=== PATIENT | male | born 1965 | race African-American/Black ===

== ENCOUNTER 2017-07-07 09:36 | Day surgery (SDC) | payer BC ==
[2017-07-03 12:17] VITALS: BMI 46.8
[2017-07-07 10:18] VITALS: TEMP 98.4
[2017-07-07 12:34] VITALS: BP 111/56; PULSE 74
--- NOTE | 2017-07-08 12:00 | PATH ---
Surgical Pathology Report Patient Name: VAL RODRIGUEZ [facility]. Rec. #: [id number] /Age/Gender: 1965 (Age: 51) / M Account: [id number] Location: [facility]-ENDOSCOPY Taken: 07/07/2017 Received: 07/07/2017 Reported: 07/08/2017 Physicians: Amauri Dominguez M.D. Specimen(s) Received A: BX RIGHT COLON B: BX RECTO SIGMOID COLON Clinical History Rule out colon cancer Polyps Final Diagnosis A. COLON, RIGHT, POLYPECTOMY: SESSILE SERRATED POLYP. SUBMUCOSAL ADIPOSE TISSUE CONSISTENT WITH LIPOMA PRESENT. B. COLON, RECTOSIGMOID, BIOPSY: HYPERPLASTIC POLYP. Comment: Sessile serrated polyps are not dysplastic (adenomatous). They share morphologic features with hyperplastic polyps and, in the past, have been referred to as such. However, recent studies indicate that they harbor BRAF mutations and may represent neoplastic precursors to a subset of sporadic, microsatellite unstable colon cancers. They are generally treated and followed similar to colonic adenomas. KATTY Real and Shoaib, PAULINA Gastroenterology 2010, 139(5):[phone]. Electronically Signed Osei Hall M.D. Gross Description A. Received in formalin labeled "right colon," is a 1.0 x 0.5 x 0.3 cm brown, polypoid portion of soft tissue. The specimen is submitted in toto in one cassette. B. Received in formalin, labeled "rectosigmoid" are 2 brown, irregular portions of soft tissue averaging 0.3 cm. in greatest dimension. The specimens are submitted in toto in one cassette. /07/07/2017 saudi07/07/2017
== END 2017-07-07 12:35 | disposition home or self-care (01) ==
LOC: FASU-ENDO 09:36
PROVIDERS: ATTEND Internal Medicine Gastroenterology
PROC: 0DBK8ZX Excision of Ascending Colon, Via Natural or Artificial Opening Endoscopic, Diagnostic (ICD-10-PCS; principal; 2017-07-07 11:27)
PROC: 0DBN8ZX Excision of Sigmoid Colon, Via Natural or Artificial Opening Endoscopic, Diagnostic (ICD-10-PCS; 2017-07-07 11:27)
DX: Z12.11 Encounter for screening for malignant neoplasm of colon (principal); D12.2 Benign neoplasm of ascending colon; K63.5 Polyp of colon
CPT/HCPCS: 88305-TC

== ENCOUNTER 2017-07-15 16:32 | Observation (INO) | payer BC ==
--- NOTE | 2017-07-15 17:14 | PDOC ---
History of Present Illness - General Chief Complaint: Rectal Bleed Stated Complaint: RECTAL BLEED Time Seen by Provider: 07/15/17 16:33 - History of Present Illness Initial Comments: 07/15/17 17:11 51 M with no PMH presents to ER with rectal bleeding. Pt had colonoscopy done and had several polyps removed. He reports that he did not have any noticeable bleeding until yesterday. He first noticed blood-streaked stool yesterday. Today, he started passing solomon blood and saw only red in the toilet bowl. He reports 8 episodes of bloody bowel movements today. Denies N/V. Denies dark tarry stools prior to onset of bleeding. Denies abdominal pain. Pt has never had GIB in the past. Is not on any blood thinners. Does not take aspirin or NSAIDs. Pt endorses lightheadedness but no CP/SOB/palpitations. Past History - Past Medical History Allergies/Adverse Reactions: Allergies Allergy/AdvReac Type Severity Reaction Status Date / Time No Known Allergies Allergy Verified 07/15/17 16:33 Home Medications: Ambulatory Orders Multivitamin [One Daily] 1 each PO DAILY 07/03/17 Anemia: No Asthma: No Cancer: No Cardiac Disorders: No CVA: No COPD: No CHF: No DVT: No Dementia: No Diabetes: No GI Disorders: No Disorders: No HTN: No Hypercholesterolemia: No Liver Disease: No Seizures: No Thyroid Disease: No - Suicide/Smoking/Psychosocial Hx Smoking History: Never smoked Hx Alcohol Use: No Drug/Substance Use Hx: No Substance Use Type: None Review of Systems - Review of Systems Comments:: 07/15/17 17:23 "GENERAL/CONSTITUTIONAL: +lightheadedness, No fever or chills. HEAD, EYES, EARS, NOSE AND THROAT: No change in vision. No ear pain or discharge. No sore throat. CARDIOVASCULAR: No chest pain or shortness of breath. RESPIRATORY: No cough, wheezing, or hemoptysis. GASTROINTESTINAL: + rectal bleeding, No nausea, vomiting, diarrhea or constipation. GENITOURINARY: No dysuria, frequency, or change in urination. MUSCULOSKELETAL: No joint or muscle swelling or pain. No neck or back pain. SKIN: No rash NEUROLOGIC: No headache, vertigo, loss of consciousness, or change in strength/ sensation. ENDOCRINE: No increased thirst. No abnormal weight change. HEMATOLOGIC/LYMPHATIC: No anemia, easy bleeding, or history of blood clots. ALLERGIC/IMMUNOLOGIC: No hives or skin allergy. " *Physical Exam - Vital Signs Last Vital Signs Temp Pulse Resp BP Pulse Ox 98.1 F 100 H 16 122/82 96 07/15/17 16:33 07/15/17 16:33 07/15/17 16:33 07/15/17 16:33 07/15/17 16:33 - Physical Exam Comments: 07/15/17 17:24 "GENERAL: Awake, alert, and fully oriented, in no acute distress HEAD: No signs of trauma EYES: PERRLA, EOMI, sclera anicteric, conjunctiva clear ENT: Auricles normal inspection, hearing grossly normal, nares patent, oropharynx clear without exudates. Moist mucosa NECK: Nontender, no stepoffs, Normal ROM, supple, no lymphadenopathy, JVD, or masses LUNGS: Breath sounds equal, clear to auscultation bilaterally. No wheezes, and no crackles HEART: Regular rate and rhythm, normal S1 and S2, no murmurs, rubs or gallops ABDOMEN: Soft, nontender, normoactive bowel sounds. No guarding, no rebound. No masses RECTAL: + red stool, guaiac positive, no melena EXTREMITIES: Normal range of motion, no edema. No clubbing or cyanosis. No cords, erythema, or tenderness NEUROLOGICAL: Cranial nerves II through XII intact. 5/5 strength and sensation in all extremities, Normal speech, normal gait SKIN: Warm, Dry, normal turgor, no rashes or lesions noted. " ED Treatment Course - LABORATORY CBC & Chemistry Diagram: 07/15/17 16:55 07/15/17 16:55 Medical Decision Making - Medical Decision Making 07/15/17 17:24 51 M with lower GIB x 2 days, likely 2/2 recent colonoscopy and polypectomy. Pt mildly tachycardic and exhibiting symptoms of anemia, suggesting significant blood loss. - Labs, serial CBCs - Dr. Dominguez, GI consult 07/15/17 18:16 CBC,CMP WBC 12.4 K/mm3 (4.0-10.8) H 07/15/17 16:55 RBC 3.13 M/mm3 (4.00-5.60) L 07/15/17 16:55 Hgb 10.0 GM/dl (11.7-16.9) L 07/15/17 16:55 Hct 30.2 % (35.4-49) L 07/15/17 16:55 MCV 96.5 fl (80-96) H 07/15/17 16:55 MCH 32.0 pg (25.7-33.7) 07/15/17 16:55 MCHC 33.1 g/dl (32.0-35.9) 07/15/17 16:55 RDW 12.1 % (11.9-15.9) 07/15/17 16:55 Plt Count 288 K/MM3 (134-434) 07/15/17 16:55 MPV 8.1 fl (7.5-11.1) 07/15/17 16:55 Neutrophils % 78.4 % (42.8-82.8) 07/15/17 16:55 Lymphocytes % 18.3 % (8-40) 07/15/17 16:55 Monocytes % 3.1 % (3.8-10.2) L 07/15/17 16:55 Eosinophils % 0.1 % (0-4.5) 07/15/17 16:55 Basophils % 0.1 % (0-2.0) 07/15/17 16:55 Sodium 134 mmol/L (136-145) L 07/15/17 16:55 Potassium 4.4 mmol/L (3.5-5.1) 07/15/17 16:55 Chloride 104 mmol/L (98-107) 07/15/17 16:55 Carbon Dioxide 24 mmol/L (22-28) 07/15/17 16:55 Anion Gap 6 (8-16) L 07/15/17 16:55 BUN 16 mg/dl (7-18) 07/15/17 16:55 Creatinine 1.1 mg/dl (0.6-1.3) 07/15/17 16:55 Creat Clearance w eGFR > 60 (>60) 07/15/17 16:55 Random Glucose 152 mg/dl (74-106) H 07/15/17 16:55 Calcium 8.3 mg/dl (8.4-10.2) L 07/15/17 16:55 Total Bilirubin 0.7 mg/dl (0.2-1.0) 07/15/17 16:55 AST 20 U/L (10-42) 07/15/17 16:55 ALT 18 U/L (10-40) 07/15/17 16:55 Alkaline Phosphatase 56 U/L (32-92) 07/15/17 16:55 Creatine Kinase 329 IU/L (39-308) H 07/15/17 16:55 Troponin I < 0.03 ng/ml (0.03-0.50) L 07/15/17 16:55 Total Protein 6.2 g/dl (6.4-8.3) L 07/15/17 16:55 Albumin 3.2 g/dl (3.5-5.0) L 07/15/17 16:[address] Dominguez, who recommends admission tonight for scope tomorrow AM. Pt aware of plan. Will admit to hospitalist. 07/15/17 18:27 Case discussed in detail with admitting physician including history, physical exam and ancillary studies. Admitting physician has assumed care for the patient and will follow all pending diagnostics and complete the evaluation and treatment. *DC/Admit/Observation/Transfer Diagnosis at time of Disposition: GI bleed - Discharge Dispostion Condition at time of disposition: Fair Admit: Yes - Attestations Physician Attestion: 07/15/17 18:17 I, Dr. Miguel Alcazar MD, attest that this document has been prepared under my direction and personally reviewed by me in its entirety. I further attest, that it accurately reflects all work, treatment, procedures and medical decision -making performed by me.
[2017-07-15 17:26] LABS: BASO % 0.1 % (0-2.0); EOS % 0.1 % (0-4.5); HEMATOCRIT 30.2 % (35.4-49); LYMPH % 18.3 % (8-40); MCHC 33.1 g/dl (32.0-35.9); MEAN CELL VOLUME 96.5 fl (80-96); MEAN PLT VOLUME 8.1 fl (7.5-11.1); MONO % 3.1 % (3.8-10.2); NEUT % 78.4 % (42.8-82.8); PLATELET COUNT 288 K/MM3 (134-434); RBC 3.13 M/mm3 (4.00-5.60); RDW 12.1 % (11.9-15.9); WHITE BLOOD COUNT 12.4 K/mm3 (4.0-10.8)
[2017-07-15 17:35] LABS: ACTIVATED PTT 22.9 SECONDS (24.0-38.9)
[2017-07-15 17:41] LABS: INR 1.17 (0.82-1.09); PROTHROMBIN TIME (PATIENT) 13.1 SEC (10.2-13.0)
[2017-07-15 17:52] LABS: ALBUMIN 3.2 g/dl (3.5-5.0); ALK PHOS 56 U/L (32-92); ANION GAP 6 (8-16); BILIRUBIN,TOTAL 0.7 mg/dl (0.2-1.0); BLOOD UREA NITROGEN 16 mg/dl (7-18); CALCIUM 8.3 mg/dl (8.4-10.2); CHLORIDE 104 mmol/L (98-107); CO2 24 mmol/L (22-28); CREATININE 1.1 mg/dl (0.6-1.3); GLUCOSE,RANDOM 152 mg/dl (74-106); POTASSIUM 4.4 mmol/L (3.5-5.1); SGOT/AST 20 U/L (10-42); SGPT/ALT 18 U/L (10-40); SODIUM 134 mmol/L (136-145); TOT PROT 6.2 g/dl (6.4-8.3)
[2017-07-15 18:03] LABS: TROPONIN I (DFP) < 0.03 ng/ml (0.03-0.50)
[2017-07-15] MEDS ORDERED: SODIUM CHLORIDE 1,000 ML IV STA (18:18)
[2017-07-15 21:57] LABS: HEMOGLOBIN 9.6 GM/dl (11.7-16.9); MCH 31.7 pg (25.7-33.7); MEAN PLT VOLUME 7.7 fl (7.5-11.1); PLATELET COUNT 276 K/MM3 (134-434); RBC 3.02 M/mm3 (4.00-5.60); RDW 12.1 % (11.9-15.9); WHITE BLOOD COUNT 14.4 K/mm3 (4.0-10.8)
[2017-07-15] MEDS ORDERED: SODIUM CHLORIDE 1,000 ML IV SCH (22:00)
[2017-07-15] MEDS ORDERED: PEG 3350/NA SULF BICARB CL/KCL 4000 ML SOLN.RECON PO ONE (22:09)
--- NOTE | 2017-07-15 22:13 | HP ---
CHIEF COMPLAINT: rectal bleeding PCP: Ernie Corea; GI: Alberto HISTORY OF PRESENT ILLNESS: This is a 51 year old male without significant past medical history who presented to the ED with 8 episodes BRBPR today. He had a colonoscopy here with Dr. Dominguez on 07/08 with polypectomy. He was fine after the procedure until yesterday when he noticed his stool was blood streaked, but today it progress to solomon hematochezia with clots. He states his last episode of BRBPR was between 2 and 3pm today. Denies abdominal pain, cramping, nausea, vomiting, hematemesis. ER course was notable for: (1) Hgb 10.0 Recent Travel: pt denies PAST MEDICAL HISTORY: none PAST SURGICAL HISTORY: none Social History: Smoking: pt denies Alcohol: 2-3 drinks on weekends Drugs: pt denies Family History: mother age 63, DM, HTN father in his 40s, lung CA brother with PMH prostate CA, in remission one son without medical problems Allergies No Known Allergies Allergy (Verified 07/15/17 16:33) HOME MEDICATIONS: 3 Medication Instructions Recorded Multivitamin [One Daily] 1 each PO DAILY 07/03/17 fish oil vitamin e REVIEW OF SYSTEMS CONSTITUTIONAL: Absent: fever, chills, diaphoresis, generalized weakness, malaise, loss of appetite, weight change HEENT: Absent: rhinorrhea, nasal congestion, throat pain, throat swelling, difficulty swallowing, mouth swelling, ear pain, eye pain, visual changes CARDIOVASCULAR: Absent: chest pain, syncope, palpitations, irregular heart rate, lightheadedness , peripheral edema RESPIRATORY: Absent: cough, shortness of breath, dyspnea with exertion, orthopnea, wheezing, stridor, hemoptysis GASTROINTESTINAL: hematochezia Absent: abdominal pain, abdominal distension, nausea, vomiting, diarrhea, constipation, melena GENITOURINARY: Absent: dysuria, frequency, urgency, hesitancy, hematuria, flank pain, genital pain MUSCULOSKELETAL: Absent: myalgia, arthralgia, joint swelling, back pain, neck pain SKIN: Absent: rash, itching, pallor HEMATOLOGIC/IMMUNOLOGIC: Absent: easy bleeding, easy bruising, lymphadenopathy, frequent infections ENDOCRINE: Absent: unexplained weight gain, unexplained weight loss, heat intolerance, cold intolerance NEUROLOGIC: Absent: headache, focal weakness or paresthesias, dizziness, unsteady gait, seizure, mental status changes, bladder or bowel incontinence PSYCHIATRIC: Absent: anxiety, depression, suicidal or homicidal ideation, hallucinations. PHYSICAL EXAMINATION Vital Signs - 24 hr 3 07/15/17 07/15/17 07/15/17 16:33 19:17 20:12 Temperature 98.1 F Pulse Rate 100 H Pulse Rate [ 92 H Apical] Pulse Rate [ 102 H Right side Sitting] Pulse Rate [ 98 H Right side Supine] Pulse Rate [ Standing] Respiratory 16 18 Rate Blood Pressure 122/82 Blood Pressure 132/72 [Arm] Blood Pressure 142/84 [Right side Sitting] Blood Pressure 128/78 [Right side Supine] Blood Pressure [Standing] O2 Sat by Pulse 96 100 Oximetry (%) 3 07/15/17 21:10 Temperature Pulse Rate Pulse Rate [ Apical] Pulse Rate [ 101 H Right side Sitting] Pulse Rate [ 93 H Right side Supine] Pulse Rate [ 128 H Standing] Respiratory Rate Blood Pressure Blood Pressure [Arm] Blood Pressure 118/61 [Right side Sitting] Blood Pressure 131/62 [Right side Supine] Blood Pressure 122/40 [Standing] O2 Sat by Pulse Oximetry (%) GENERAL: Awake, alert, and fully oriented, in no acute distress. HEAD: Normal with no signs of trauma. EYES: Pupils equal, round and reactive to light, extraocular movements intact, sclera anicteric, conjunctiva clear. No lid lag. EARS, NOSE, THROAT: Ears normal, nares patent, oropharynx clear without exudates. Moist mucous membranes. NECK: Normal range of motion, supple without lymphadenopathy, JVD, or masses. LUNGS: Breath sounds equal, clear to auscultation bilaterally. No wheezes, and no crackles. No accessory muscle use. HEART: Regular rate and rhythm, normal S1 and S2 without murmur, rub or gallop. ABDOMEN: Soft, nontender, not distended, normoactive bowel sounds, no guarding, no rebound, no masses. No hepatomegaly or splenomegaly. MUSCULOSKELETAL: Normal range of motion at all joints. No bony deformities or tenderness. No CVA tenderness. UPPER EXTREMITIES: 2+ pulses, warm, well-perfused. No cyanosis. No clubbing. No peripheral edema. LOWER EXTREMITIES: 2+ pulses, warm, well-perfused. No calf tenderness. No peripheral edema. NEUROLOGICAL: Cranial nerves II-XII intact. Normal speech. Normal gait. PSYCHIATRIC: Cooperative. Good eye contact. Appropriate mood and affect. SKIN: Warm, dry, normal turgor, no rashes or lesions noted, normal capillary refill. Laboratory Results - last 24 hr 3 07/15/17 07/15/17 07/15/17 07/15/17 16:55 16:55 16:55 17:00 WBC 12.4 H RBC 3.13 L Hgb 10.0 L Hct 30.2 L MCV 96.5 H MCH 32.0 MCHC 33.1 RDW 12.1 Plt Count 288 MPV 8.1 Neutrophils % 78.4 Lymphocytes % 18.3 Monocytes % 3.1 L Eosinophils % 0.1 Basophils % 0.1 PT with INR 13.1 H INR 1.17 PTT (Actin FS) 22.9 L Sodium 134 L Potassium 4.4 Chloride 104 Carbon Dioxide 24 Anion Gap 6 L BUN 16 Creatinine 1.1 Creat Clearance w eGFR > 60 Random Glucose 152 H Calcium 8.3 L Total Bilirubin 0.7 AST 20 ALT 18 Alkaline Phosphatase 56 Creatine Kinase 329 H Creatine Kinase Index 1.1 CK-MB (CK-2) 3.7 Troponin I < 0.03 L Total Protein 6.2 L Albumin 3.2 L Stool Occult Blood Positive Blood Type O POSITIVE Antibody Screen Negative Crossmatch See Detail ECG NSR vent rate 96, [id number] ASSESSMENT/PLAN: 51yM with no PMH presented to the ED with 8 episodes BRBPR today. Rectal bleeding s/p recent colonoscopy with polypectomy - Hgb 10 on admission, repeat pending - NS @ 250cc/hr x 1 more liter then 125cc/hr - GI consult, requesting go lytely prep for colonoscopy - discussed with Dr. Dominguez pt orthostatic and need to get up if given golytely , advised IVF and attempt golytely, transfuse if HCT less than 25 - OOB with assistance only given orthostatic - cardiac monitoring DVT PPX - contraindicated due to active bleeding FEN - NS @ 250cc/hr x 1 liter then 125cc/hr Dispo: Pt currently requires inpatient observation for management. Visit type - Emergency Visit Emergency Visit: Yes ED Registration Date: 07/15/17 Care time: The patient presented to the Emergency Department on the above date and was hospitalized for further evaluation of their emergent condition. - New Patient This patient is new to me today: Yes Date on this admission: 07/15/17 - Critical Care Critical Care patient: No
[2017-07-15 23:00] VITALS: BMI 48.6
[2017-07-16] MEDS ORDERED: SODIUM CHLORIDE 1,000 ML IV SCH (01:45)
[2017-07-16] MEDS ORDERED: PROPOFOL 20 ML ONE ×2 (07:44)
--- NOTE | 2017-07-16 08:31 | PN ---
Physical Exam: SUBJECTIVE: Patient seen and examined OBJECTIVE: Vital Signs Period Temp Pulse Resp BP Sys/Mcmillan Pulse Ox Last 24 Hr 97.8 F-98.5 F 92-128 16-19 118-142/40-84 96-100 GENERAL: The patient is awake, alert, and fully oriented, in no acute distress. HEAD: Normal with no signs of trauma. EYES: PERRL, extraocular movements intact, sclera anicteric, conjunctiva clear. No ptosis. ENT: Ears normal, nares patent, oropharynx clear without exudates, moist mucous membranes. NECK: Trachea midline, full range of motion, supple. LUNGS: Breath sounds equal, clear to auscultation bilaterally, no wheezes, no crackles, no accessory muscle use. HEART: Regular rate and rhythm, S1, S2 without murmur, rub or gallop. ABDOMEN: Soft, nontender, nondistended, normoactive bowel sounds, no guarding, no rebound, no hepatosplenomegaly, no masses. EXTREMITIES: 2+ pulses, warm, well-perfused, no edema. NEUROLOGICAL: Cranial nerves II through XII grossly intact. Normal speech, gait not observed. PSYCH: Normal mood, normal affect. SKIN: Warm, dry, normal turgor, no rashes or lesions noted Laboratory Results - last 24 hr 07/15/17 07/15/17 07/15/17 16:55 16:55 16:55 WBC 12.4 H RBC 3.13 L Hgb 10.0 L Hct 30.2 L MCV 96.5 H MCH 32.0 MCHC 33.1 RDW 12.1 Plt Count 288 MPV 8.1 Neutrophils % 78.4 Lymphocytes % 18.3 Monocytes % 3.1 L Eosinophils % 0.1 Basophils % 0.1 PT with INR 13.1 H INR 1.17 PTT (Actin FS) 22.9 L Sodium 134 L Potassium 4.4 Chloride 104 Carbon Dioxide 24 Anion Gap 6 L BUN 16 Creatinine 1.1 Creat Clearance w eGFR > 60 Random Glucose 152 H Calcium 8.3 L Total Bilirubin 0.7 AST 20 ALT 18 Alkaline Phosphatase 56 Creatine Kinase 329 H Creatine Kinase Index 1.1 CK-MB (CK-2) 3.7 Troponin I < 0.03 L Total Protein 6.2 L Albumin 3.2 L Stool Occult Blood Blood Type Antibody Screen Crossmatch 1107/15/17 07/15/17 16:55 17:00 17:00 WBC RBC Hgb Hct MCV MCH MCHC RDW Plt Count MPV Neutrophils % Lymphocytes % Monocytes % Eosinophils % Basophils % PT with INR INR PTT (Actin FS) Sodium Potassium Chloride Carbon Dioxide Anion Gap BUN Creatinine Creat Clearance w eGFR Random Glucose Calcium Total Bilirubin AST ALT Alkaline Phosphatase Creatine Kinase Creatine Kinase Index CK-MB (CK-2) Troponin I Total Protein Albumin Stool Occult Blood Positive Blood Type O POSITIVE O POSITIVE Antibody Screen Negative Crossmatch See Detail 07/15/17 21:41 WBC 14.4 H RBC 3.02 L Hgb 9.6 L Hct 29.0 L MCV 96.0 MCH 31.7 MCHC 33.0 RDW 12.1 Plt Count 276 MPV 7.7 Neutrophils % Lymphocytes % Monocytes % Eosinophils % Basophils % PT with INR INR PTT (Actin FS) Sodium Potassium Chloride Carbon Dioxide Anion Gap BUN Creatinine Creat Clearance w eGFR Random Glucose Calcium Total Bilirubin AST ALT Alkaline Phosphatase Creatine Kinase Creatine Kinase Index CK-MB (CK-2) Troponin I Total Protein Albumin Stool Occult Blood Blood Type Antibody Screen Crossmatch Active Medications Generic Name Dose Route Start Last Admin Trade Name Freq PRN Reason Stop Dose Admin Sodium Chloride 1,000 mls @ 125 mls/hr 07/16/17 01:45 Normal Saline - IV ASDIR [facility] ASSESSMENT/PLAN:
--- NOTE | 2017-07-16 10:05 | PN ---
Progress Note (short form) - Note Progress Note: Patient seen and chart reviewed. Patient is a 51 yo male admitted 9 days s/p colonoscopy with polypectomy for LGI bleeding. Had some dizziness and mild orthostatic changes with initial labs notable for Hct 30% (repeat this am 29%). Received Nulytely prep and has not seen any gross blood W[place] today. Colonoscopy performed to cecum with polypectomy site in ascending colon identified and noted to have ulceration but no bleeding (?small clot?). Three endoclips placed and no bleeding seen.Remainder of colon normal. Suspect recent LGI bleed due to post-polypectomy site/ulceration; currently stable without evidence or active bleeding. Can advance diet and discharge home if stable. Discussed with patient and will followup in office.
[2017-07-16 11:15] LABS: BASO % 1.5 % (0-2.0); EOS % 0.4 % (0-4.5); HEMATOCRIT 24.7 % (35.4-49); HEMOGLOBIN 8.3 GM/dl (11.7-16.9); LYMPH % 21.4 % (8-40); MCH 32.2 pg (25.7-33.7); MCHC 33.7 g/dl (32.0-35.9); MEAN CELL VOLUME 95.7 fl (80-96); MEAN PLT VOLUME 7.7 fl (7.5-11.1); MONO % 6.4 % (3.8-10.2); NEUT % 70.3 % (42.8-82.8); PLATELET COUNT 263 K/MM3 (134-434); RBC 2.58 M/mm3 (4.00-5.60); RDW 12.3 % (11.9-15.9); WHITE BLOOD COUNT 12.7 K/mm3 (4.0-10.8)
[2017-07-16 11:15] LABS: ALK PHOS 52 U/L (32-92); ANION GAP 4 (8-16); BILIRUBIN,TOTAL 0.8 mg/dl (0.2-1.0); BLOOD UREA NITROGEN 10 mg/dl (7-18); CALCIUM 8.1 mg/dl (8.4-10.2); CHLORIDE 105 mmol/L (98-107); CO2 27 mmol/L (22-28); CREATININE 0.9 mg/dl (0.6-1.3); GLUCOSE,RANDOM 113 mg/dl (74-106); MAGNESIUM 1.7 mg/dL (1.8-2.4); PHOSPHOROUS 2.8 mg/dl (2.5-4.6); POTASSIUM 3.9 mmol/L (3.5-5.1); SGOT/AST 17 U/L (10-42); SGPT/ALT 16 U/L (10-40); SODIUM 136 mmol/L (136-145); TOT PROT 5.7 g/dl (6.4-8.3)
--- NOTE | 2017-07-16 11:58 | DS ---
Physical Exam: SUBJECTIVE: Patient seen and examined, denies any abdominal pain reports feeling well, patient tolerated breakfast tray, had one episode of loose stools , no melena noted. OBJECTIVE: Patient is a 51 year old male without significant past medical history who presented to the ED with 8 episodes BRBPR today. He had a colonoscopy here with Dr. Dominguez on 07/08 with polypectomy. He fine after the procedure until yesterday when he noticed his stool was blood streaked, but today it progress to solomon hematochezia with clots. He states his last episode of BRBPR was between 2 and 3pm today. Denies abdominal pain, cramping, nausea, vomiting, hematemesis. ER course was notable for: (1) Hgb 10.0 Vital Signs Period Temp Pulse Resp BP Sys/Mcmillan Pulse Ox Last 24 Hr 97.7 F-98.5 F 92-128 16-19 118-142/40-84 96-100 PHYSICAL EXAM GENERAL: obese, patient is awake, alert, and fully oriented, in no acute distress. HEAD: Normal with no signs of trauma. EYES: PERRL, extraocular movements intact, sclera anicteric, conjunctiva clear. ENT: Ears normal, nares patent, oropharynx clear without exudates, moist mucous membranes. NECK: Trachea midline, full range of motion, supple. LUNGS: Breath sounds equal, clear to auscultation bilaterally, no wheezes, no crackles, no accessory muscle use. HEART: Regular rate and rhythm, S1, S2 without murmur, rub or gallop. ABDOMEN: Soft, nontender, nondistended, normoactive bowel sounds, no guarding, no rebound, no hepatosplenomegaly, no masses. EXTREMITIES: 2+ pulses, warm, well-perfused, no edema. NEUROLOGICAL: Cranial nerves II through XII grossly intact. Normal speech, gait not observed. PSYCH: Normal mood, normal affect. SKIN: Warm, dry, normal turgor, no rashes or lesions noted. LABS Laboratory Results - last 24 hr 07/15/17 07/15/17 07/15/17 16:55 16:55 16:55 WBC 12.4 H RBC 3.13 L Hgb 10.0 L Hct 30.2 L MCV 96.5 H MCH 32.0 MCHC 33.1 RDW 12.1 Plt Count 288 MPV 8.1 Neutrophils % 78.4 Lymphocytes % 18.3 Monocytes % 3.1 L Eosinophils % 0.1 Basophils % 0.1 PT with INR 13.1 H INR 1.17 PTT (Actin FS) 22.9 L Sodium 134 L Potassium 4.4 Chloride 104 Carbon Dioxide 24 Anion Gap 6 L BUN 16 Creatinine 1.1 Creat Clearance w eGFR > 60 Random Glucose 152 H Calcium 8.3 L Total Bilirubin 0.7 AST 20 ALT 18 Alkaline Phosphatase 56 Creatine Kinase 329 H Creatine Kinase Index 1.1 CK-MB (CK-2) 3.7 Troponin I < 0.03 L Total Protein 6.2 L Albumin 3.2 L Stool Occult Blood Blood Type Antibody Screen Crossmatch 07/15/17 07/15/17 07/15/17 16:55 17:00 17:00 WBC RBC Hgb Hct MCV MCH MCHC RDW Plt Count MPV Neutrophils % Lymphocytes % Monocytes % Eosinophils % Basophils % PT with INR INR PTT (Actin FS) Sodium Potassium Chloride Carbon Dioxide Anion Gap BUN Creatinine Creat Clearance w eGFR Random Glucose Calcium Total Bilirubin AST ALT Alkaline Phosphatase Creatine Kinase Creatine Kinase Index CK-MB (CK-2) Troponin I Total Protein Albumin Stool Occult Blood Positive Blood Type O POSITIVE O POSITIVE Antibody Screen Negative Crossmatch See Detail 07/15/17 07/16/17 21:41 08:15 WBC 14.4 H 12.7 H RBC 3.02 L 2.58 L Hgb 9.6 L 8.3 L D Hct 29.0 L 24.7 L MCV 96.0 95.7 MCH 31.7 32.2 MCHC 33.0 33.7 RDW 12.1 12.3 Plt Count 276 263 MPV 7.7 7.7 Neutrophils % 70.3 Lymphocytes % 21.4 Monocytes % 6.4 D Eosinophils % 0.4 D Basophils % 1.5 D PT with INR INR PTT (Actin FS) Sodium Potassium Chloride Carbon Dioxide Anion Gap BUN Creatinine Creat Clearance w eGFR Random Glucose Calcium Total Bilirubin AST ALT Alkaline Phosphatase Creatine Kinase Creatine Kinase Index CK-MB (CK-2) Troponin I Total Protein Albumin Stool Occult Blood Blood Type Antibody Screen Crossmatch HOSPITAL COURSE: Patient was admitted from the emergency department for Rectal bleeding s/p recent colonoscopy with polypectomy on 07/08/[address] Dominguez,GI. Patient was evaluated by Dr Dominguez (GI), repeat colonscopy performed 07/15/17 to cecum and polypectomy site, 3 endoclips placed. Patient had a bowel movement soon after, no melena noted, repeat hgb 8.3 stable. Patient tolerated diet, remained normotensive throughout admission. Date of Admission:07/15/17 Date of Discharge: 07/16/17 Minutes to complete discharge: 45 Discharge Summary Reason For Visit: GI BLEED Current Active Problems GI bleed (Acute) Condition: Fair - Instructions Diet, Activity, Other Instructions: resume bland diet please follow up with Dr Dominguez within 2 weeks if any new or persistent symptoms develop please return to the emergency department. Referrals: Amauri Dominguez MD [Staff Physician] - 2 Weeks Frank Agustin MD [Primary Care Provider] - Disposition: HOME - Home Medications Comprehensive Discharge Medication List: Ambulatory Orders Multivitamin [One Daily] 1 each PO DAILY 07/03/17 This patient is new to me today: Yes Date on this admission: 07/16/17 Emergency Visit: Yes ED Registration Date: 07/15/17 Care time: The patient presented to the Emergency Department on the above date and was hospitalized for further evaluation of their emergent condition. Critical Care patient: No - Discharge Referral Referred to [facility] Med P.C.: No
[2017-07-16] MEDS ORDERED: MAGNESIUM SULF 50% (8.12 MEQ/2 ML-1 GM VIAL) IVPB ONE (12:25)
[2017-07-16 13:58] VITALS: BP 135/52; PULSE 100; TEMP 97.9
--- NOTE | 2017-07-16 16:15 | EKG ---
Test Reason : Blood Pressure : / mmHG Vent. Rate : 096 BPM Atrial Rate : 096 BPM P-R Int : 146 ms QRS Dur : 084 ms QT Int : 336 ms P-R-T Axes : 063 062 030 degrees QTc Int : 424 ms NORMAL SINUS RHYTHM NO PREVIOUS ECGS AVAILABLE Confirmed by MD CRISTOBAL, FRANCISCO ([id number]) on 07/16/2017 4:15:40 PM Referred By: DR BURNETT Confirmed By:FRANCISCO JAIN MD
== END 2017-07-16 15:40 | disposition home or self-care (01) ==
LOC: FER 16:32 → FM/S 19:27 → UNDOADMOB 19:27 → INTOOBSV 19:27 → FM/S 23:05
PROVIDERS: ADMIT Hospitalist; ATTEND Nurse Practitioner Family
PROC: 3E033GC Introduction of Other Therapeutic Substance into Peripheral Vein, Percutaneous Approach (ICD-10-PCS; principal; 2017-07-15)
PROC: 3E0337Z Introduction of Electrolytic and Water Balance Substance into Peripheral Vein, Percutaneous Approach (ICD-10-PCS; 2017-07-15)
DX: K92.2 Gastrointestinal hemorrhage, unspecified (principal)
CPT/HCPCS: 36415; 80053; 82272; 82550; 82553; 83735; 84100; 84484; 85025; 85027; 85610; 85730; 86850; 86900; 86901; 86922; 93005; 96361; 96374; 99284-25; G0378